=== PATIENT | female | born 1955 | race African-American/Black ===

== ENCOUNTER 2018-06-26 21:25 | Emergency (ER) | payer OTHER ==
[2018-06-26 22:42] LABS: ADD MAN DIFF? NO
[2018-06-26 22:48] LABS: BASOPHILS % 0.4 % (0.0-2.0); EOSINOPHILS # 0.1 10^3/ul (0.0-0.5); EOSINOPHILS % 0.8 % (0.0-7.0); HEMATOCRIT 37.1 % (37.0-47.0); HEMOGLOBIN 12.7 g/dl (12.0-16.0); LYMPHOCYTES # 2.7 10^3/ul (0.8-2.9); MEAN CORPUSCULAR HGB CONC 34.2 g/dl (32.0-37.0); MEAN CORPUSCULAR VOLUME 84.7 fl (82.0-101.0); MEAN PLATELET VOLUME 10.6 fl (7.4-10.4); MONOCYTES % 9.9 % (0.0-11.0); NEUTROPHIL # 6.4 10^3/ul (1.6-7.5); NEUTROPHILS % 62.5 % (39.0-77.0); PLATELET COUNT 195 10^3/UL (140-415); RED BLOOD COUNT 4.38 10^6/ul (4.20-5.40); RED CELL DISTRIBUTION WIDTH 11.9 % (11.5-14.5)
[2018-06-26 22:48] LABS: WHITE BLOOD COUNT 10.3 10^3/ul (4.8-10.8)
[2018-06-26] MEDS: ONDANSETRON 4 MG INJ IV (22:52)
[2018-06-26] MEDS: FAMOTIDINE 20 MG INJ IV (22:52)
[2018-06-26] MEDS: LIDOCAINE/MYLANTA 40 ML BTL PO (22:52)
[2018-06-26] MEDS: SOD CHLORIDE 0.9% 1,000 ML IV (22:53)
[2018-06-26] MEDS: BELLADONNA/PHENOBARBITAL TAB PO (22:53)
[2018-06-26 23:00] LABS: ADD UMIC YES; UR AMORPHOUS CRYSTAL FEW /HPF (NONE SEEN); UR ASCORBIC ACID NEGATIVE (NEGATIVE); UR BACTERIA FEW /HPF (NONE SEEN); UR BILIRUBIN (Dip) NEGATIVE (NEGATIVE); UR BLOOD (Dip) 3+ mg/dL (NEGATIVE); UR CLARITY CLOUDY (CLEAR); UR COLOR YELLOW (YELLOW); UR GLUCOSE (Dip) NEGATIVE (NEGATIVE); UR KETONES (Dip) NEGATIVE (NEGATIVE); UR LEUKOCYTE ESTERASE (Dip) 3+ Leu/ul (NEGATIVE); UR NITRITE (Dip) POSITIVE (NEGATIVE); UR RBC 51 /HPF (0-5); UR SPECIFIC GRAVITY (Dip) 1.013 (1.003-1.030); UR SQUAMOUS EPITHELIAL CELL FEW /HPF (FEW); UR TOTAL PROTEIN (Dip) NEGATIVE (NEGATIVE); UR UROBILINOGEN (Dip) NEGATIVE (NEGATIVE); UR WBC > 182 /HPF (0-5)
[2018-06-26 23:08] LABS: ALANINE AMINOTRANSFERASE 19 IU/L (13-69); ALBUMIN 4.2 g/dl (3.3-4.9); ALKALINE PHOSPHATASE 67 IU/L (42-121); ANION GAP 10 (5-13); ASPARTATE AMINO TRANSFERASE 22 IU/L (15-46); BILIRUBIN,INDIRECT 1.5 mg/dl (0-1.1); BILIRUBIN,TOTAL 1.5 mg/dl (0.2-1.3); BLOOD UREA NITROGEN 16 mg/dl (7-20); CALCIUM 10.4 mg/dl (8.4-10.2); CARBON DIOXIDE 25 mmol/L (21-31); CHLORIDE 108 mmol/L (97-110); CREATININE 0.58 mg/dl (0.44-1.00); Estimated GFR > 60 mL/min (>60); GLUCOSE 111 mg/dl (70-220); LIPASE 101 U/L (23-300); POTASSIUM 4.1 mmol/L (3.5-5.1); SODIUM 143 mmol/L (135-144)
[2018-06-26 23:23] LABS: FREE T4 (FREE THYROXINE) 3.25 ng/dl (0.78-2.44)
[2018-06-26 23:38] LABS: THYROID STIMULATING HORMONE < 0.015 MIU/L (0.465-4.680)
[2018-06-26] MEDS: CEFTRIAXONE 1 GM/50 ML (PMX) 50 ML IVPB (23:46)
== END 2018-06-27 00:37 | disposition home or self-care (01) ==
LOC: E/R 06-27 00:37
DX: N30.01 Acute cystitis with hematuria (principal); E80.6 Other disorders of bilirubin metabolism; R19.7 Diarrhea, unspecified; E03.9 Hypothyroidism, unspecified; I10 Essential (primary) hypertension; Z87.891 Personal history of nicotine dependence
CPT/HCPCS: 36415; 71045; 80053; 81001; 83690; 84439; 84443; 85025; 96361; 96365; 96375; 99284-25

== ENCOUNTER 2018-12-05 12:12 | Day surgery (SDC) | payer OTHER ==
[2018-12-05] MEDS ORDERED: LIDOCAINE 2% (SDV) 5 ML INJ (13:38)
[2018-12-05] MEDS ORDERED: PROPOFOL 60 ML (13:38)
[2018-12-05] MEDS ORDERED: ONDANSETRON 4 MG INJ IV (15:00)
[2018-12-05] MEDS ORDERED: FENTAnyl 50 MCG/ML VIAL IV (15:00)
== END 2018-12-05 15:03 | disposition home or self-care (01) ==
LOC: GIL 12:12
DX: K64.8 Other hemorrhoids (principal); K29.60 Other gastritis without bleeding; I10 Essential (primary) hypertension; E03.9 Hypothyroidism, unspecified; D12.5 Benign neoplasm of sigmoid colon; D12.3 Benign neoplasm of transverse colon
CPT/HCPCS: 43239; 88305; 88312